=== PATIENT | female | born 1990 | race African-American/Black ===

== ENCOUNTER 2022-06-11 20:37 | Emergency (ER) | payer SELFPAY ==
[~2022-06-11] VITALS: Ht 162.6 cm; Wt 61.2 kg
[2022-06-11] MEDS ORDERED: AMOXICILLIN500 MG PO (21:34)
[2022-06-11] MEDS ORDERED: ULTRAM 50MG50 MG PO (21:36)
[2022-06-11 21:42] VITALS: BP 115/65
== END 2022-06-11 21:44 | disposition home or self-care (01) ==
LOC: FSED 21:13
DX: R50.9 Fever, unspecified (principal); K08.89 Other specified disorders of teeth and supporting structures
CPT/HCPCS: 99283